=== PATIENT | male | born 1965 | race African-American/Black ===

== ENCOUNTER 2024-07-07 17:02 | Inpatient (IN) | payer OTHER ==
[2024-07-07 17:52] VITALS: BMI 22.7
[2024-07-07] MEDS ORDERED: ACETAMINOPHEN 325 MG TABLET (FP) PO PRN (18:20)
[2024-07-07] MEDS ORDERED: MAGNESIUM HYDROX 2400MG/30ML ORAL SUSPENSION 30 ML CUP PO PRN (18:20)
[2024-07-07] MEDS ORDERED: MAG HYDROX/AL HYDROX/SIMETH 30 ML UNIT-DOSE CUP PO PRN (18:20)
[2024-07-07] MEDS ORDERED: NALOXONE (NARCAN) HCL 4 MG/0.1 ML SPRAY NS PRN (18:20)
[2024-07-07] MEDS ORDERED: IBUPROFEN 400 MG TABLET (FP) PO PRN (18:20)
[2024-07-07] MEDS ORDERED: BENZOCAINE/MENTHOL (CHLORASEPTIC ) LOZENGE MM PRN (18:20)
[2024-07-07] MEDS ORDERED: ONDANSETRON *ODT* 4 MG TABLET SL PRN (18:20)
[2024-07-07] MEDS ORDERED: DICYCLOMINE HCL 10 MG CAPSULE PO PRN (18:20)
[2024-07-07] MEDS ORDERED: BISMUTH SUBSALICYLATE 524 MG/30 ML PO PRN (18:20)
[2024-07-07] MEDS ORDERED: POLYETHYLENE GLYCOL (HEALTHYLAX) 3350 17 GM PACKET PO PRN (18:20)
[2024-07-07] MEDS ORDERED: METHOCARBAMOL 500 MG TABLET PO PRN (18:20)
[2024-07-07] MEDS ORDERED: hydrOXYzine PAMOATE 25 MG CAPSULE (FP) PO PRN (18:20)
[2024-07-07] MEDS: THIAMINE 100 MG TABLET PO SCH (22:24)
[2024-07-07] MEDS: MELATONIN 5 MG TABLETS PO SCH (22:24)
[2024-07-07] MEDS: chlordiazePOXIDE HCL 25 MG CAPSULE PO SCH (22:25)
[2024-07-08] MEDS: CEPHALEXIN MONOHYDRATE 500 MG CAPSULE (UD) PO SCH (05:46)
[2024-07-08] MEDS: PRENATAL VITAMINS W/ FOLIC ACID TABLET (FP) PO SCH (10:49)
[2024-07-08 11:13] LABS: HEMATOCRIT 41.1 % (35.4-49); HEMOGLOBIN 13.8 GM/dL (11.7-16.9); MCH 32.1 pg (25.7-33.7); MCHC 33.6 g/dl (32.0-35.9); MEAN CELL VOLUME 95.7 fl (80-96); MEAN PLT VOLUME 6.7 fl (7.5-11.1); PLATELET COUNT 337 10^3/uL (134-434); RDW 13.4 % (11.9-15.9); WHITE BLOOD COUNT 14.8 K/mm3 (4.0-10.0)
[2024-07-08 11:16] LABS: CHLORIDE 102 mmol/L (98-107); POTASSIUM 3.4 mmol/L (3.5-5.1); SODIUM 140 mmol/L (136-145)
[2024-07-08 11:21] LABS: CALCIUM 8.5 mg/dL (8.5-10.1)
[2024-07-08 11:23] LABS: ALBUMIN 2.8 g/dl (3.4-5.0); ANION GAP 7 mmol/L (4-13); BLOOD UREA NITROGEN 10.6 mg/dL (7-18); CO2 30 mmol/L (21-32); GLUCOSE,RANDOM 133 mg/dL (74-106)
[2024-07-08 11:25] LABS: SGOT/AST 34 U/L (15-37); SGPT/ALT 22 U/L (13-61)
[2024-07-08 11:26] LABS: BILIRUBIN,TOTAL 0.6 mg/dL (0.2-1); TOT PROT 6.3 g/dl (6.4-8.2)
[2024-07-08 11:27] LABS: ALK PHOS 120 U/L (45-117)
[2024-07-08] MEDS: BENZONATATE 200 MG CAPSULE PO PRN (14:55)
[2024-07-08] MEDS: guaiFENesin 600 MG TABLET.ER (FP) PO PRN (17:15)
[2024-07-08] MEDS: IBUPROFEN 600 MG TABLET (FP) PO PRN (17:15)
[2024-07-09] MEDS: chlordiazePOXIDE HCL 25 MG CAPSULE PO SCH (05:59)
[2024-07-09] MEDS: chlordiazePOXIDE HCL 25 MG CAPSULE PO PRN (18:04)
[2024-07-10] MEDS ORDERED: chlordiazePOXIDE HCL 10 MG CAPSULE PO PRN
[2024-07-10] MEDS: chlordiazePOXIDE HCL 10 MG CAPSULE PO SCH (05:59)
[2024-07-10 16:52] VITALS: RESP 16
[2024-07-11] MEDS: chlordiazePOXIDE HCL 10 MG CAPSULE PO SCH (05:55)
[2024-07-11 11:10] LABS: HEMATOCRIT 43.5 % (35.4-49); HEMOGLOBIN 14.9 GM/dL (11.7-16.9); MCH 32.6 pg (25.7-33.7); MCHC 34.2 g/dl (32.0-35.9); MEAN CELL VOLUME 95.3 fl (80-96); MEAN PLT VOLUME 6.2 fl (7.5-11.1); PLATELET COUNT 397 10^3/uL (134-434); RBC 4.56 M/mm3 (4.00-5.60); RDW 13.3 % (11.9-15.9); WHITE BLOOD COUNT 8.6 K/mm3 (4.0-10.0)
[2024-07-11 12:50] LABS: ANISOCYTOSIS 1+; MACROCYTOSIS 0
[2024-07-11] MEDS: LOPERAMIDE HCL 2 MG CAPSULE PO PRN (23:27)
[2024-07-12] MEDS: chlordiazePOXIDE HCL 10 MG CAPSULE PO ONE (05:33)
[2024-07-12 09:05] VITALS: BP 125/81; PULSE 68; TEMP 98.1
== END 2024-07-12 15:10 | disposition short-term general hospital (02) | DRG 774 ==
LOC: YASAS 17:02 → Y6N 18:22
PROVIDERS: ADMIT Allergy & Immunology; ATTEND Allergy & Immunology
PROC: HZ2ZZZZ Detoxification Services for Substance Abuse Treatment (ICD-10-PCS; principal; 2024-07-07)
DX: F10.230 Alcohol dependence with withdrawal, uncomplicated (principal); F14.10 Cocaine abuse, uncomplicated; F17.210 Nicotine dependence, cigarettes, uncomplicated; F31.9 Bipolar disorder, unspecified; F41.9 Anxiety disorder, unspecified; D72.819 Decreased white blood cell count, unspecified; R55 Syncope and collapse; S09.90XA Unspecified injury of head, initial encounter; R73.9 Hyperglycemia, unspecified; W18.2XXA Fall in (into) shower or empty bathtub, initial encounter; Y93.E1 Activity, personal bathing and showering; Y92.231 Patient bathroom in hospital as the place of occurrence of the external cause
CPT/HCPCS: 36415; 73130-TC-LT-FY; 80053; 80305; 80307; 83036; 85025; 85027; 86593; 86780; 93005; 93010

== ENCOUNTER 2024-07-12 10:18 | Observation (INO) | payer OTHER ==
[2024-07-12 12:13] VITALS: BMI 24.3
[2024-07-12 12:15] LABS: BASO % 0.8 % (0-2.0); EOS % 2.3 % (0-4.5); HEMATOCRIT 40.5 % (35.4-49); HEMOGLOBIN 13.9 GM/dL (11.7-16.9); LYMPH % 14.4 % (8-40); MCH 32.6 pg (25.7-33.7); MCHC 34.3 g/dl (32.0-35.9); MEAN PLT VOLUME 6.1 fl (7.5-11.1); MONO % 8.7 % (3.8-10.2); NEUT % 73.8 % (42.8-82.8); PLATELET COUNT 383 10^3/uL (134-434); RBC 4.26 M/mm3 (4.00-5.60); RDW 13.2 % (11.9-15.9)
[2024-07-12 12:22] LABS: INR 1.04 (0.83-1.09); PROTHROMBIN TIME (PATIENT) 11.3 SEC (9.7-13.0)
[2024-07-12 12:25] LABS: ACTIVATED PTT 30.4 SECONDS (25.2-36.5)
[2024-07-12 12:35] LABS: POTASSIUM 4.2 mmol/L (3.5-5.1)
[2024-07-12 12:37] LABS: ALBUMIN 2.8 g/dl (3.4-5.0); BLOOD UREA NITROGEN 7.1 mg/dL (7-18); CALCIUM 8.9 mg/dL (8.5-10.1)
[2024-07-12 12:41] LABS: CREATININE 0.8 mg/dL (0.55-1.3)
[2024-07-12 12:42] LABS: BILIRUBIN,TOTAL 0.2 mg/dL (0.2-1); TOT PROT 6.2 g/dl (6.4-8.2)
[2024-07-12] MEDS ORDERED: ASPIRIN 81 MG CHEWABLE TABLETS ONE ×2 (13:06→13:50)
[2024-07-12] MEDS ORDERED: BENZOCAINE 20 % GEL TUBE MM PRN (15:04)
[2024-07-12] MEDS ORDERED: BENZOCAINE 10 % GEL TUBE MM PRN (15:12)
[2024-07-12] MEDS ORDERED: THIAMINE 100 MG TABLET ONE (22:13)
[2024-07-12] MEDS: THIAMINE 100 MG TABLET PO SCH (22:22)
[2024-07-12 22:58] VITALS: BP 129/73; PULSE 82; RESP 17; TEMP 97.8
[2024-07-13] MEDS ORDERED: MIRTAZAPINE 15 MG TABLET (FP) PO SCH (10:00)
[2024-07-13] MEDS ORDERED: FOLIC ACID 1 MG TABLET (FP) PO SCH (10:00)
== END 2024-07-12 23:04 | disposition left against medical advice (07) ==
LOC: JER 10:18 → INTOOBSV 13:46 → JERBED 13:46
PROVIDERS: ADMIT Internal Medicine; ATTEND Internal Medicine
DX: R55 Syncope and collapse (principal); W18.39XA Other fall on same level, initial encounter; Y93.89 Activity, other specified; Y92.231 Patient bathroom in hospital as the place of occurrence of the external cause; F17.210 Nicotine dependence, cigarettes, uncomplicated; I10 Essential (primary) hypertension; F10.10 Alcohol abuse, uncomplicated; F14.10 Cocaine abuse, uncomplicated; R79.89 Other specified abnormal findings of blood chemistry; A53.0 Latent syphilis, unspecified as early or late
CPT/HCPCS: 0241U-QW; 36415; 70450-TC; 71046-TC-FY; 72125-TC; 72170-TC-FY; 80053; 83735; 84484; 85025; 85610; 85730; 93005; 93010; 99285-25; G0378